=== PATIENT | female | born 1940 | race Caucasian/White ===

== ENCOUNTER 2021-04-11 15:24 | Inpatient (IN) | payer OTHER, SELFPAY ==
[~2021-04-11] VITALS: Ht 154.9 cm; Wt 49.9 kg
[2021-04-11 15:30] VITALS: BP_SYST 114
--- NOTE | 2021-04-11 16:02 | NUR ---
PT BIBA FROM HOME, RECEIVED ON [email or web address]. PT REPOSITIONED AND MADE COMFORTABLE. PT AAOX3, IN NAD. RESP EVEN AND UNLABOREDON RA @98%, LS- CLEAR MONICA DENIES ANY SB OR CP. ABD ROUND/SOFT. NT TO PALPATION, +BS IN 4 QUADS. DENIES ANY N/V/D. REPORTS DRINKING VITAMIN WATER AND EATING WELL. WHEN SKED WHY SHE CAME TO HOSPITAL, SHE SAID HER CALLED BECAUSE HE DOESNT WANT ME COMPLAINING OF MY FOOT PAIN. DENIES ANY ACUTE INJURY. NO REDNESS/TRAUMA NOTED. MILD PTTING EDEMA NOTED +2 TO MONICA FEET, DRY/PINK IN COLOR. PT SPECIFIES THAT PAIN TO MONICA GREAT TOES ONLY X 1 WEEK. IV SL NOTED TO LEFT FA PLACED BY FIRE-PATENT. WAITING FOR ER MD CAMPOVERDE.
[2021-04-11] MEDS ORDERED: NACL 0.9% 1,000 ML IV ONE (16:15)
--- NOTE | 2021-04-11 16:34 | NUR ---
SPOKE WITH IN WAT ROOM, PER ... HAS BEEN INCREASINGLY CONFUSED AT HOME, NOT TAKING HER PRESCRIBD MEDS AND NOT EATING WELL. HE REPORTS GOING TO WORK, NOT BEING ABLE TO TAKE CARE OF ALL DAY. "I'M JUST CONCERNED FOR HER SO I WANTED TO HAVE A DOCTOR SEE HER" ALSO VERBALIZES HE TOOK HER TO A NEUROLOGIST LAST WEEK AND THEY DID SEVERAL STUDIES,WAITING ON FULL RESULTS.
--- NOTE | 2021-04-11 16:38 | NUR ---
NBR [phone]
[2021-04-11 16:51] LABS: BASOPHILS % (AUTO) 0.2 % (0.0-2.0); EOSINOPHILS % (AUTO) 0.1 % (0.0-4.0); HEMATOCRIT 36.4 % (36-48); HEMOGLOBIN 12.9 g/dL (12.0-16.0); LYMPHOCYTES # (AUTO) 0.8 K/uL (1.0-5.5); LYMPHOCYTES % (AUTO) 5.3 % (20.5-51.5); MEAN CORPUSCULAR HEMOGLOBIN 34 pg (27-31); MEAN CORPUSCULAR HGB CONC 36 % (32-36); MEAN CORPUSCULAR VOLUME 96 fL (79.0-98.0); MONOCYTES # (AUTO) 1.2 K/uL (0.0-1.0); MONOCYTES % (AUTO) 8.4 % (1.7-9.3); NEUTROPHILS # (AUTO) 12.3 K/uL (1.8-7.7); PLATELET COUNT (AUTO) 255 K/uL (130-430); RED BLOOD CELL COUNT(AUTO) 3.78 MIL/uL (4.2-6.2); RED CELL DISTRIBUTION WIDTH 14.6 % (9.0-15.0); WHITE BLOOD COUNT (AUTO) 14.3 K/uL (4.8-10.8)
[2021-04-11 17:07] LABS: ANION GAP 8 (5-15); CALCIUM 8.9 mg/dL (8.4-11.0); CHLORIDE 98 mmol/L (98-107); CREATININE 1.45 mg/dL (0.55-1.30); GLUCOSE 109 mg/dL (70-99); SODIUM SERUM 136 mmol/L (136-145); UREA NITROGEN, BLOOD 19 mg/dL (8-21)
[2021-04-11 17:18] LABS: ALANINE AMINOTRANSFERASE 13 U/L (12-78); ALBUMIN 3.6 g/dL (3.4-4.8); ASPARTATE AMINOTRANSFERASE 28 U/L (10-37); TOTAL BILIRUBIN 0.6 mg/dL (0.0-1.0)
[2021-04-11] MEDS ORDERED: KCL 20 mEq in 100 mL (PREMIX) 100 ML IV ONE (17:45)
[2021-04-11 18:04] LABS: BILIRUBIN,URINE NEGATIVE (NEGATIVE); BLOOD, URINE NEGATIVE (NEGATIVE); CLARITY/URINE CLEAR (CLEAR); COLOR,URINE YELLOW (YELLOW); GLUCOSE,URINE NEGATIVE (NEGATIVE); KETONES,URINE 1+ (NEGATIVE); LEUKOCYTE ESTERASE ,URINE NEGATIVE (NEGATIVE); NITRITE, URINE NEGATIVE (NEGATIVE); PH,URINE 6.5 (5.0-8.0); PROTEIN URINE 2+ (NEGATIVE); UROBILINOGEN,URINE 0.2 (0.2-1.0)
--- NOTE | 2021-04-11 18:07 | NUR ---
IN AND OUT CATH DONE, PT WITH DRY STOOL, CLEANED PRIOR AND PERFORMED CATH WITH ASSISTANCE FROM EMT, ASEPTIC TECHNIQUE DONE, PT TOLERATED WELL. URINE COLLECTED AND SENT TO LAB FOR ANALYSIS.
[2021-04-11 18:12] LABS: BACTERIA,URINE None Seen /HPF (None Seen); MUCUS,URINE None Seen /LPF (None Seen); RBC,URINE NONE SEEN /HPF (0-3); WBC,URINE NONE SEEN /HPF (0-3)
--- NOTE | 2021-04-11 18:51 | NUR ---
CARVIDOPA/LEVODOPA 100MG BID, DR BUNCH-NEUROLOGIST STARTED THIS MEDICATION ON 04/01. HAS SCHEDULED MRI ON 04/15 PER WHO CALLED ER.
[2021-04-11] MEDS ORDERED: [UNRECOGNIZED DRUG - CODE] PO (19:13)
[2021-04-11] MEDS ORDERED: TEMA30CA5 PO (19:13)
[2021-04-11] MEDS ORDERED: ATOR20TA64 PO (19:13)
[2021-04-11] MEDS ORDERED: METO-542 PO (19:13)
[2021-04-11] MEDS ORDERED: LEVO150C4 PO (19:13)
[2021-04-11] MEDS ORDERED: SULF500T8 PO (19:13)
[2021-04-11] MEDS ORDERED: FOLI-43 PO (19:13)
[2021-04-11] MEDS ORDERED: GABA300T25 PO (19:13)
[2021-04-11] MEDS ORDERED: HYDR-4273 PO (19:13)
[2021-04-11] MEDS ORDERED: CARB-111 PO (19:13)
--- NOTE | 2021-04-11 19:20 | NUR ---
assumed car of pt from registry nurse BETITO PAZ
[2021-04-11] MEDS ORDERED: POTASSIUM CHLORIDE 20 MEQ/PKT PACKET PO ONE (19:30)
--- NOTE | 2021-04-11 19:35 | NUR ---
pt is unable to tolerate the iv potassium. dr sin informed. told to dicontinue iv and given 20meq of powdered potassium
[2021-04-11] MEDS ORDERED: KCL 20 mEq in NS 1000 mL 1,000 ML IV ONE ×2 (19:45→22:34)
--- NOTE | 2021-04-11 20:10 | NUR ---
SPOKE WTH BOTH DAUGHTER ALEX AND PTs . BOTH ARE AWARE OF HER STATUS
--- NOTE | 2021-04-11 20:51 | NUR ---
med rec complete
--- NOTE | 2021-04-11 20:51 | NUR ---
pts belongings list complete
--- NOTE | 2021-04-11 20:51 | NUR ---
pt is fullcode
--- NOTE | 2021-04-11 21:01 | NUR ---
Patient will be admitted to care of . Admitted to tele unit. Will go to room 104B. Belongings list completed. Complete and up to date summary report printed. SBAR report to be given at bedside with opportunity for questions.
--- NOTE | 2021-04-11 21:10 | NUR ---
[facility] Licensed nurse present. IV present no signs or symptoms of infiltration.
--- NOTE | 2021-04-11 21:20 | NUR ---
ADMISSION NOTE Received patient from ER via gurney. Patient admitted with diagnosis of Hypokalemia, Dehydration. Patient is awake, alert, oriented X 2. Patient oriented to hospital room, call light, toileting, pain management and safety-teach back done. Patient informed that JACKSON Foster will be primary nurse and that their room number is 104B. Personal belongings checked and Belongings List documented. Call light within reach.
--- NOTE | 2021-04-11 21:30 | NUR ---
Report received for pt in room 104-B. Pt in stable condition. Skin check shows no skin breakdown. VS: 125/76, 68, 96.7, 18, 96%RA. 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 Sinus Rhythm.
[2021-04-11] MEDS ORDERED: ACETAMINOPHEN 325 MG TABLET PO PRN (21:45)
[2021-04-11] MEDS ORDERED: TEMAZEPAM 15 MG CAPSULE PO PRN (21:45)
--- NOTE | 2021-04-11 21:51 | NUR ---
CONSULT REASON FOR CONSULT: HYPOKALEMIA, GURPREET PERSON I SPOKE WITH: FELICITY CONSULTING PHYSICIAN: DR. GARCIA (DR. LANCE RECORDS OFFICER) OXYGEN TANK FILLER PHONE NUMBER: [phone] ORDERING PHYSICIAN: DR. RANGEL
[2021-04-11 22:00] VITALS: BP_SYST 125
[2021-04-12] MEDS ORDERED: traMADol HCL HCL 50 MG TABLET (ULTRAM) PO PRN
[2021-04-12] MEDS: LEVOTHYROXINE SODIUM 0.15 MG TABLET PO SCH (06:38)
--- NOTE | 2021-04-12 07:17 | NUR ---
PT ON BEDPAN FOR EVACUATION OF GAS. PT ASKED THAT DAY RN REMIND HER THAT AT 1300 (1PM) SHE CAN TURN TO CHANNEL 4 FOR HER FAVORITE SOAP OPERA. PT ASKED THAT HER DAY RN ALSO REMIND HER THAT AT 1400 (2PM) SHE CAN TURN TO CHANNEL 7 FOR HER OTHER FAVORITE SOAP OPERA.
[2021-04-12 07:59] LABS: BASOPHILS % (AUTO) 0.2 % (0.0-2.0); EOSINOPHILS % (AUTO) 0.4 % (0.0-4.0); HEMATOCRIT 35.6 % (36-48); HEMOGLOBIN 12.4 g/dL (12.0-16.0); LYMPHOCYTES # (AUTO) 1.3 K/uL (1.0-5.5); LYMPHOCYTES % (AUTO) 14.1 % (20.5-51.5); MEAN CORPUSCULAR HEMOGLOBIN 34 pg (27-31); MEAN CORPUSCULAR HGB CONC 35 % (32-36); MEAN CORPUSCULAR VOLUME 98 fL (79.0-98.0); MONOCYTES # (AUTO) 0.8 K/uL (0.0-1.0); MONOCYTES % (AUTO) 8.2 % (1.7-9.3); NEUTROPHILS # (AUTO) 7.4 K/uL (1.8-7.7); NEUTROPHILS % (AUTO) 77.1 % (40.0-70.0); PLATELET COUNT (AUTO) 233 K/uL (130-430); RED BLOOD CELL COUNT(AUTO) 3.64 MIL/uL (4.2-6.2); RED CELL DISTRIBUTION WIDTH 14.7 % (9.0-15.0)
--- NOTE | 2021-04-12 08:00 | NUR ---
awake and alert. said her left leg is painful that she cant hardly move it. she ask to get up to use the commode. she urinated to clear yellow urine for 600 cc. back to bed her legs is cramping. put massage and stretch the cramped muscle , gently rub it to help relax. will observe fall precaution.
[2021-04-12 09:00] LABS: ALBUMIN 3.2 g/dL (3.4-4.8); ANION GAP 11 (5-15); ASPARTATE AMINOTRANSFERASE 30 U/L (10-37); CALCIUM 8.6 mg/dL (8.4-11.0); CHLORIDE 101 mmol/L (98-107); CREATININE 0.92 mg/dL (0.55-1.30); FREE T4 (FREE THYROXINE) 0.4 ng/dl (0.8-1.5); GLUCOSE 95 mg/dL (70-99); PHOSPHORUS 2.6 mg/dL (2.7-4.5); SODIUM SERUM 139 mmol/L (136-145); THYROID STIMULATING HORMONE 99.81 uIu/mL (0.36-3.74); TOTAL BILIRUBIN 0.6 mg/dL (0.0-1.0); UREA NITROGEN, BLOOD 15 mg/dL (8-21)
[2021-04-12] MEDS: ATORVASTATIN 20 MG TABLET PO SCH (09:17)
[2021-04-12] MEDS: POTASSIUM CHLORIDE 10 MEQ TAB.PRT.SR PO SCH ×2 (09:17→21:50)
[2021-04-12] MEDS: METOPROLOL SUCCINATE 50 MG TAB.SR.24H (TOPROL XL) PO SCH (09:18)
[2021-04-12 09:44] LABS: POTASSIUM 2.3 mmol/L (3.5-5.1)
[2021-04-12 09:45] LABS: ALANINE AMINOTRANSFERASE 20 U/L (12-78)
--- NOTE | 2021-04-12 09:45 | NUR ---
KYLE FROM LAB CALLED FOR [facility]ITICAL [facility] RESULT 2.8. DR. GRANT CALLED [facility]
--- NOTE | 2021-04-12 10:31 | NUR ---
PAGED PAGED MIGUEL GIBBONS AT [phone] LEFT A VOICEMAIL.
[2021-04-12 11:01] LABS: WHITE BLOOD COUNT (AUTO) 9.5 K/uL (4.8-10.8)
[2021-04-12 11:45] VITALS: BP_SYST 123
[2021-04-12] MEDS ORDERED: POTASSIUM CHLORIDE 20 MEQ TAB.PRT.SR PO ONE (12:00)
[2021-04-12 19:00] VITALS: BP_SYST 148
[2021-04-12 23:58] VITALS: BP_SYST 146
[2021-04-13] MEDS: LEVOTHYROXINE SODIUM 0.15 MG TABLET PO SCH (06:14)
--- NOTE | 2021-04-13 06:43 | NUR ---
Nutrition Update Julius Scale 17 noted. Pt admitted for Hypokalemia, dehydration Diet: Regular BMI: 20.8 kg/m2 RD to follow per nutrition care standards.
[2021-04-13 06:50] LABS: BASOPHILS % (AUTO) 0.3 % (0.0-2.0); EOSINOPHILS # (AUTO) 0.1 K/uL (0.0-0.4); EOSINOPHILS % (AUTO) 0.9 % (0.0-4.0); HEMATOCRIT 39.5 % (36-48); HEMOGLOBIN 13.6 g/dL (12.0-16.0); LYMPHOCYTES # (AUTO) 1.7 K/uL (1.0-5.5); LYMPHOCYTES % (AUTO) 16.5 % (20.5-51.5); MEAN CORPUSCULAR HEMOGLOBIN 34 pg (27-31); MEAN CORPUSCULAR HGB CONC 35 % (32-36); MEAN CORPUSCULAR VOLUME 98 fL (79.0-98.0); MONOCYTES # (AUTO) 1.1 K/uL (0.0-1.0); MONOCYTES % (AUTO) 10.2 % (1.7-9.3); NEUTROPHILS # (AUTO) 7.5 K/uL (1.8-7.7); NEUTROPHILS % (AUTO) 72.1 % (40.0-70.0); PLATELET COUNT (AUTO) 230 K/uL (130-430); RED BLOOD CELL COUNT(AUTO) 4.03 MIL/uL (4.2-6.2); RED CELL DISTRIBUTION WIDTH 14.7 % (9.0-15.0); WHITE BLOOD COUNT (AUTO) 10.4 K/uL (4.8-10.8)
--- NOTE | 2021-04-13 09:00 | NUR ---
DUE MEDS GIVEN.
[2021-04-13] MEDS: ATORVASTATIN 20 MG TABLET PO SCH (09:12)
[2021-04-13] MEDS: POTASSIUM CHLORIDE 10 MEQ TAB.PRT.SR PO SCH ×2 (09:13→21:42)
[2021-04-13] MEDS: METOPROLOL SUCCINATE 50 MG TAB.SR.24H (TOPROL XL) PO SCH (09:13)
[2021-04-13 09:15] VITALS: BP_SYST 151
[2021-04-13 10:41] LABS: ALANINE AMINOTRANSFERASE 31 U/L (12-78); ALBUMIN 3.3 g/dL (3.4-4.8); ANION GAP 7 (5-15); ASPARTATE AMINOTRANSFERASE 34 U/L (10-37); CALCIUM 8.5 mg/dL (8.4-11.0); CHLORIDE 98 mmol/L (98-107); CREATININE 0.75 mg/dL (0.55-1.30); GLUCOSE 88 mg/dL (70-99); PHOSPHORUS 1.9 mg/dL (2.7-4.5); SODIUM SERUM 136 mmol/L (136-145); TOTAL BILIRUBIN 0.7 mg/dL (0.0-1.0); UREA NITROGEN, BLOOD 10 mg/dL (8-21)
[2021-04-13 11:34] VITALS: BP_SYST 151
[2021-04-13 12:34] LABS: POTASSIUM 2.4 mmol/L (3.5-5.1)
--- NOTE | 2021-04-13 12:42 | NUR ---
DR RANGEL CALLED FOR POTASSIUM LEVEL 2.4 AWAITING FOR THE MD TO CALL BACKED.
[2021-04-13 12:55] LABS: CREATINE KINASE MB 7.4 ng/mL (0-3.6)
--- NOTE | 2021-04-13 13:07 | NUR ---
2ND CALL FOR DR RANGEL POTASSIUM LEVEL 2.4. AWAITING TO CALL BACK.
[2021-04-13] MEDS ORDERED: POTASSIUM CHLORIDE 40 MEQ in NS 250 ML IV ONE (14:15)
--- NOTE | 2021-04-13 14:16 | NUR ---
HIGH ALERT NOTE: Called ANIYA Lyons AT 1342 back at [phone] identified within the medical roster to verify physician authenticity. FOR POTASSIUM LEVEL OF 2.4. K RIDER 40 MEQ IN NORMAL SALINE TO RUN OVER 4 HOURS.
[2021-04-13 15:31] VITALS: BP_SYST 147
[2021-04-13] MEDS ORDERED: HEPARIN SODIUM,PORCINE 5,000 UNITS/ML VIAL ONE (15:36)
[2021-04-13] MEDS ORDERED: NA PHOS 15 MM in NS 250 ML IV ONE (16:30)
[2021-04-13] MEDS ORDERED: MAGNESIUM SULFATE 50 ML IV ONE (16:30)
[2021-04-13] MEDS ORDERED: MAGNESIUM SULFATE 1 GM/2 ML VIAL IVP ONE (16:30)
[2021-04-13 18:34] LABS: ANION GAP 7 (5-15); CALCIUM 8.7 mg/dL (8.4-11.0); CHLORIDE 95 mmol/L (98-107); CREATININE 0.73 mg/dL (0.55-1.30); GLUCOSE 109 mg/dL (70-99); POTASSIUM 3.1 mmol/L (3.5-5.1); SODIUM SERUM 132 mmol/L (136-145); UREA NITROGEN, BLOOD 10 mg/dL (8-21)
--- NOTE | 2021-04-13 19:30 | NUR ---
Opening note Pt is awake lying in bed. No s/s of respiratory distress noted. IV site is intact and patent. Fall and safety precautions are in place with bed in lowest position, bed alarm on, and call light within reach. Will continue to monitor
--- NOTE | 2021-04-13 19:36 | NUR ---
ENDORSED TO CASSANDRA PAZ REGARDING URINE TO SUBMIT TO LABORATORY FOR URINE OSMOLALITY AND PROTEIN RANDOM.
[2021-04-13 20:00] VITALS: BP_SYST 155
[2021-04-13] MEDS: POTASSIUM CHLORIDE 30 MEQ in NACL 0.9% 1,000 ML IV SCH (21:39)
[2021-04-14 00:23] VITALS: BP_SYST 152
--- NOTE | 2021-04-14 00:31 | NUR ---
RN rounds Pt is asleep, no s/s of respiratory distress. Fall and safety precautions in place. No needs at this time. No needs at this time
--- NOTE | 2021-04-14 03:31 | NUR ---
RN rounds Pt is sleeping. no s/s of respiratory distress. No needs at this time. Fall and safety precautions in place. Will continue to monitor
[2021-04-14 06:06] LABS: T3 UPTAKE 16 % (24-39)
[2021-04-14] MEDS: LEVOTHYROXINE SODIUM 0.15 MG TABLET PO SCH (06:07)
--- NOTE | 2021-04-14 06:37 | NUR ---
Closing note Pt is lying in bed watching TV. No s/s of respiratory distress. Breathing is even and unlabored. IV site is intact and patent with fluids running at ordered rate. Bed is locked in lowest position with bed alarm on and call light within reach. All needs met throughout shift. Will continue to monitor until endorsed to day shift
[2021-04-14 07:14] LABS: BASOPHILS % (AUTO) 0.2 % (0.0-2.0); EOSINOPHILS % (AUTO) 0.2 % (0.0-4.0); HEMATOCRIT 43.6 % (36-48); HEMOGLOBIN 15.3 g/dL (12.0-16.0); LYMPHOCYTES # (AUTO) 1.3 K/uL (1.0-5.5); LYMPHOCYTES % (AUTO) 10.2 % (20.5-51.5); MEAN CORPUSCULAR HEMOGLOBIN 34 pg (27-31); MEAN CORPUSCULAR HGB CONC 35 % (32-36); MEAN CORPUSCULAR VOLUME 97 fL (79.0-98.0); MONOCYTES # (AUTO) 1.2 K/uL (0.0-1.0); MONOCYTES % (AUTO) 9.8 % (1.7-9.3); NEUTROPHILS # (AUTO) 9.9 K/uL (1.8-7.7); NEUTROPHILS % (AUTO) 79.6 % (40.0-70.0); PLATELET COUNT (AUTO) 240 K/uL (130-430); RED BLOOD CELL COUNT(AUTO) 4.49 MIL/uL (4.2-6.2); RED CELL DISTRIBUTION WIDTH 14.7 % (9.0-15.0); WHITE BLOOD COUNT (AUTO) 12.4 K/uL (4.8-10.8)
[2021-04-14 07:39] LABS: ALANINE AMINOTRANSFERASE 34 U/L (12-78); ALBUMIN 3.3 g/dL (3.4-4.8); ANION GAP 9 (5-15); ASPARTATE AMINOTRANSFERASE 32 U/L (10-37); CALCIUM 8.4 mg/dL (8.4-11.0); CHLORIDE 95 mmol/L (98-107); CREATININE 0.65 mg/dL (0.55-1.30); GLUCOSE 102 mg/dL (70-99); PHOSPHORUS 2.8 mg/dL (2.7-4.5); SODIUM SERUM 134 mmol/L (136-145); TOTAL BILIRUBIN 0.8 mg/dL (0.0-1.0); UREA NITROGEN, BLOOD 7 mg/dL (8-21)
[2021-04-14 07:45] LABS: POTASSIUM 2.8 mmol/L (3.5-5.1)
[2021-04-14 07:55] VITALS: BP_SYST 164
--- NOTE | 2021-04-14 08:42 | NUR ---
HIGH ALERT NOTE: Called Charlie Lyons back at identified within the medical roster to verify physician authenticity.
[2021-04-14] MEDS: ATORVASTATIN 20 MG TABLET PO SCH (08:46)
[2021-04-14] MEDS: POTASSIUM CHLORIDE 10 MEQ TAB.PRT.SR PO SCH ×2 (08:46→20:52)
[2021-04-14] MEDS: METOPROLOL SUCCINATE 50 MG TAB.SR.24H (TOPROL XL) PO SCH (08:46)
[2021-04-14] MEDS ORDERED: POTASSIUM CHLORIDE 40 MEQ in NS 250 ML IV ONE (10:00)
--- NOTE | 2021-04-14 10:01 | NUR ---
pt pulle out her iv access, started new access aseptically, pt tolerated well. iv fluids infusing now.
[2021-04-14 11:45] VITALS: BP_SYST 140
--- NOTE | 2021-04-14 11:54 | NUR ---
HIGH ALERT NOTE: Called Charlie Lyons back at [phone] identified within the medical roster to verify physician authenti
[2021-04-14] MEDS ORDERED: POTASSIUM CHLORIDE 20 MEQ TAB.PRT.SR PO ONE (12:00)
--- NOTE | 2021-04-14 14:00 | NUR ---
pt pulled out her iv access, educated pt on the importance of having iv access. pt unable to understand. refused to have new iv acces started.
[2021-04-14 15:30] VITALS: BP_SYST 136
--- NOTE | 2021-04-14 16:12 | NUR ---
Pt's faxed an MRI order from Dr. Duckworth. paged Dr Billy to check if he wants to order the mri.
[2021-04-14] MEDS: POTASSIUM CHLORIDE 30 MEQ in NACL 0.9% 1,000 ML IV SCH (17:37)
--- NOTE | 2021-04-14 17:42 | NUR ---
DR RANGEL CALLED BACK INFORMED THAT PT'S FAXED AN MRI ORDER FROM DR Audi BUNCH. ASKED MD IF HE WANTS TO PUT IT AN ORDER. SAID THAT IS FINE.
--- NOTE | 2021-04-14 19:35 | NUR ---
OPENING NOTE RECEIVED REPORT FROM DAY RN. PT LAYING IN BED WITH RESPIRATIONS EVEN AND UNLABORED ON RA. NO SIGNS OF DISTRESS NOTED. UPON SAYING, "HELLO MRS. PAZ" PT STATES, "MY FRIENDS CALL ME QTIP" AND POINTS TO HER WHITE HAIR. LEFT FA 22G IV INTACT AND PATENT. FLUSHES WELL. BED IN LOWEST AND LOCKED POSITION. CALL LIGHT WITHIN REACH. SAFETY PRECAUTIONS IN PLACE. EDUCATED PT ON PLAN OF CARE. WILL CONTINUE TO MONITOR.
[2021-04-14 20:00] VITALS: BP_SYST 139
[2021-04-15 01:28] VITALS: BP_SYST 156
[2021-04-15] MEDS: LEVOTHYROXINE SODIUM 0.15 MG TABLET PO SCH (06:55)
[2021-04-15 07:52] VITALS: BP_SYST 154
[2021-04-15] MEDS: ATORVASTATIN 20 MG TABLET PO SCH (08:33)
[2021-04-15] MEDS: METOPROLOL SUCCINATE 50 MG TAB.SR.24H (TOPROL XL) PO SCH (08:34)
[2021-04-15] MEDS: POTASSIUM CHLORIDE 10 MEQ TAB.PRT.SR PO SCH ×2 (08:34→20:15)
[2021-04-15] MEDS ORDERED: NS 500 ML IV ONE (08:45)
[2021-04-15 09:04] LABS: ALANINE AMINOTRANSFERASE 36 U/L (12-78); ALBUMIN 3.1 g/dL (3.4-4.8); ANION GAP 9 (5-15); ASPARTATE AMINOTRANSFERASE 27 U/L (10-37); CALCIUM 8.4 mg/dL (8.4-11.0); CHLORIDE 100 mmol/L (98-107); CREATININE 0.74 mg/dL (0.55-1.30); GLUCOSE 161 mg/dL (70-99); POTASSIUM 3.3 mmol/L (3.5-5.1); SODIUM SERUM 136 mmol/L (136-145); TOTAL BILIRUBIN 0.5 mg/dL (0.0-1.0); UREA NITROGEN, BLOOD 9 mg/dL (8-21)
[2021-04-15] MEDS: POTASSIUM CHLORIDE 30 MEQ in NACL 0.9% 1,000 ML IV SCH ×2 (09:19→14:54)
[2021-04-15 12:42] VITALS: BP_SYST 156
[2021-04-15 15:20] VITALS: BP_SYST 150
--- NOTE | 2021-04-15 17:17 | NUR ---
Patient has been stable the whole shift,pt gave okay for the mri and answered the mri questionaire. updated with pt status and condition.
--- NOTE | 2021-04-15 18:40 | NUR ---
ROUNDS PATIENT IN BED, WATCHING TV, NOT IN DISTRESS, VITALS STABLE. ASSESSMENT DONE AND DOCUMENTED. SEE FLOWSHEET. NEEDS ATTENDED TO. SAFETY MEASURES IN PLACED. CALL LIGHT PLACED WITHIN REACH.
[2021-04-15 20:00] VITALS: BP_SYST 154
--- NOTE | 2021-04-15 21:14 | NUR ---
MEDICATION DUE MEDS GIVEN SCHEDULED, TOLERATED WELL. WILL CONTINUE TO MONITOR.
[2021-04-16 00:15] VITALS: BP_SYST 158
--- NOTE | 2021-04-16 02:13 | NUR ---
PATIENT RESTING: Patient resting quietly. No acute distress noted. Vital signs within normal range.
[2021-04-16] MEDS: LEVOTHYROXINE SODIUM 0.15 MG TABLET PO SCH (06:43)
--- NOTE | 2021-04-16 07:30 | NUR ---
AM ROUNDS: PATIENT SLEEPING DURING ROUNDS. IV FLUIDS RUNNING AT RIGHT ARM INTACT. CALL LIGHT WITH IN REACH. BED LOCKED AT LOWEST POSITION. BED ALARM ON.STABLE.
[2021-04-16 08:10] VITALS: BP_SYST 163
[2021-04-16] MEDS: ATORVASTATIN 20 MG TABLET PO SCH (08:36)
[2021-04-16] MEDS: METOPROLOL SUCCINATE 50 MG TAB.SR.24H (TOPROL XL) PO SCH (08:36)
[2021-04-16] MEDS: POTASSIUM CHLORIDE 10 MEQ TAB.PRT.SR PO SCH ×2 (08:43→21:41)
--- NOTE | 2021-04-16 12:37 | NUR ---
Back from MRI: Patient got back from MRI via gurney in stable condition. Connected back to telemetry.
[2021-04-16 12:44] VITALS: BP_SYST 140
[2021-04-16] MEDS: POTASSIUM CHLORIDE 30 MEQ in NACL 0.9% 1,000 ML IV SCH (16:27)
[2021-04-16 16:33] VITALS: BP_SYST 124
--- NOTE | 2021-04-16 18:33 | NUR ---
END OF SHIFT: PATIENT SERVED DINNER. NEEDS ASSISTANCE DURING DINNER. CALL LIGHT WITH IN REACH. BED LOCKED AT LOWEST POSITION. BED ALARM ON.CONTINUE TO MONITOR. NO DISTRESS.
--- NOTE | 2021-04-16 19:40 | NUR ---
ROUNDS PATIENT RESTING COMFORTABLY IN BED, NOT IN DISTRESS, VITALS STABLE. ASSESSMENT DONE AND DOCUMENTED. SAFETY AND FALL MEASURES IN PLACED. BED IN LOW AND LOCKED POSITION. CALL LIGHT PLACED WITHIN REACH.
[2021-04-16 19:45] VITALS: BP_SYST 151
--- NOTE | 2021-04-17 00:12 | NUR ---
PATIENT RESTING: Patient resting quietly. No acute distress noted. Vital signs within normal range.
[2021-04-17 00:30] VITALS: BP_SYST 155
--- NOTE | 2021-04-17 03:14 | NUR ---
ROUNDS PATIENT ASLEEP, RESPIRATIONS EVEN AND UNLABORED. WILL CONTINUE TO MONITOR.
[2021-04-17] MEDS: LEVOTHYROXINE SODIUM 0.15 MG TABLET PO SCH (06:14)
--- NOTE | 2021-04-17 06:47 | NUR ---
CLOSING NOTES PATIENT AWAKE, NO COMPLAINTS AT THIS TIME, ALL NEEDS ATTENDED TO. SAFETY MEASURES MAINTAINED. CALL LIGHT PLACED WITHIN REACH.
[2021-04-17 07:32] LABS: BASOPHILS % (AUTO) 0.2 % (0.0-2.0); EOSINOPHILS # (AUTO) 0.1 K/uL (0.0-0.4); HEMATOCRIT 40.7 % (36-48); HEMOGLOBIN 14.1 g/dL (12.0-16.0); LYMPHOCYTES # (AUTO) 1.4 K/uL (1.0-5.5); MEAN CORPUSCULAR HEMOGLOBIN 34 pg (27-31); MEAN CORPUSCULAR HGB CONC 35 % (32-36); MEAN CORPUSCULAR VOLUME 99 fL (79.0-98.0); MONOCYTES # (AUTO) 1.3 K/uL (0.0-1.0); MONOCYTES % (AUTO) 10.5 % (1.7-9.3); NEUTROPHILS # (AUTO) 9.6 K/uL (1.8-7.7); NEUTROPHILS % (AUTO) 77.3 % (40.0-70.0); PLATELET COUNT (AUTO) 237 K/uL (130-430); RED BLOOD CELL COUNT(AUTO) 4.12 MIL/uL (4.2-6.2); WHITE BLOOD COUNT (AUTO) 12.5 K/uL (4.8-10.8)
[2021-04-17 08:00] VITALS: BP_SYST 164
--- NOTE | 2021-04-17 08:00 | NUR ---
Initial notes awake, disoriented. Oriented patient to time and place. IVF infusing well. On room air, no distress. Safety precaution observed. bed alarm on. will monitor.
[2021-04-17 08:13] LABS: ANION GAP 9 (5-15); CALCIUM 8.7 mg/dL (8.4-11.0); CHLORIDE 97 mmol/L (98-107); CREATININE 0.56 mg/dL (0.55-1.30); GLUCOSE 98 mg/dL (70-99); POTASSIUM 3.1 mmol/L (3.5-5.1); SODIUM SERUM 132 mmol/L (136-145); UREA NITROGEN, BLOOD 10 mg/dL (8-21)
[2021-04-17] MEDS: POTASSIUM CHLORIDE 10 MEQ TAB.PRT.SR PO SCH (09:50)
[2021-04-17] MEDS: METOPROLOL SUCCINATE 50 MG TAB.SR.24H (TOPROL XL) PO SCH (09:50)
[2021-04-17] MEDS: ATORVASTATIN 20 MG TABLET PO SCH (09:50)
--- NOTE | 2021-04-17 10:00 | NUR ---
Notes walking with physical therapy with walker at this time.
[2021-04-17 11:33] VITALS: BP_SYST 155
--- NOTE | 2021-04-17 11:45 | NUR ---
Notes spoke to Dr. Addy cortez covering for Dr. Walton, made aware of patient's has bed in [facility] and potassium results MD ordered discharge and to continue home meds and pottasium in snf
--- NOTE | 2021-04-17 11:56 | NUR ---
CM note: late entry: dcp to snf: discussed with pt's spouse for snf placement for PT. [facility]f of choice provided: [facility], [facility] and [facility]. Hong/spouse requested snf in [place] [facility]. The referral sent to [facility] and was accepted. Per Bree, assigned pt to room 100 B . >> Booked with [facility] B[facility] for picking tech time at 3 pm. DC package placed in [facility]. JACKSON Rodriguez made aware. Hong made aware and agreed with the transfer. Addendum: 04/17/21 at 1539 by Samreen Gotti RN Received call from Sergye Squires: there will be a delay picking tech the pt until 5 pm. The ride was cancelled and rebooked with [facility]/St[facility] for picking tech at 4 -4:15 pm.-- JACKSON Rodriguez made aware.
--- NOTE | 2021-04-17 12:00 | NUR ---
Notes Eating lunch able to feed self.
[2021-04-17] MEDS ORDERED: POTA20TA83 PO (12:40)
[2021-04-17 14:21] VITALS: BP_SYST 142
[2021-04-17 14:27] VITALS: BP_SYST 142
--- NOTE | 2021-04-17 16:42 | NUR ---
Discharge patient to [facility], aware. patient awake, confused. Denies any pain or discomfort. No distress noted. discharge packet given to ambulance staff, patient only has clothing and slippers. arm band removed. discharge
[2021-04-21 09:45] LABS: TRIIODOTHYRONINE (T3) 30 ng/dL (71-180)
== END 2021-04-17 16:40 | DRG 641 ==
LOC: SED 15:24 → STU 19:39
PROVIDERS: ADMIT Family Medicine; ATTEND Family Medicine
DX: E87.6 Hypokalemia (principal); N17.9 Acute kidney failure, unspecified; E86.0 Dehydration; I10 Essential (primary) hypertension; E03.9 Hypothyroidism, unspecified; E78.5 Hyperlipidemia, unspecified; G20 Parkinson's disease; R19.7 Diarrhea, unspecified; Z20.822 Contact with and (suspected) exposure to COVID-19; E83.42 Hypomagnesemia; E83.39 Other disorders of phosphorus metabolism; R41.3 Other amnesia; Z79.899 Other long term (current) drug therapy; Z79.891 Long term (current) use of opiate analgesic; Z79.890 Hormone replacement therapy
CPT/HCPCS: 36415; 71045; 72141; 80048; 80053; 81000; 82550; 82553; 83735; 83930; 83935; 84100; 84439; 84443; 84479; 84480; 85025; 93005; 96361; 96365; 97163-GP; 99285; G0378; J1644; J3475; J3480; J7030; J7050